=== PATIENT | female | born 2000 | race Caucasian/White ===

== ENCOUNTER 2023-12-12 17:59 | Emergency (ER) | payer OTHER ==
[2023-12-12] MEDS ORDERED: Morphine 4 MG/ML VIAL ONE (18:21)
== END 2023-12-12 19:32 | disposition home or self-care (01) ==
LOC: CSHERS 17:59
DX: S43.014A Anterior dislocation of right humerus, initial encounter (principal); F17.290 Nicotine dependence, other tobacco product, uncomplicated; X58.XXXA Exposure to other specified factors, initial encounter
CPT/HCPCS: 23650; 96374; J2272